=== PATIENT | male | born 1985 | race Caucasian/White ===

== ENCOUNTER 2017-06-15 20:56 | Emergency (ER) | payer BC ==
[~2017-06-15] VITALS: Ht 175.3 cm; Wt 125.8 kg
[~2017-06-15 20:56] MED LIST: DENIES
[2017-06-15 21:15] VITALS: Ht 175.3 cm; Wt 125.8 kg
== END 2017-06-16 02:51 | disposition left against medical advice (07) ==
LOC: FTE 20:56
DX: Z53.21 Procedure and treatment not carried out due to patient leaving prior to being seen by health care provider (principal)